=== PATIENT | female | born 1940 | race Caucasian/White ===

== ENCOUNTER → 2024-01-22 15:48 | Outpatient (REF) | payer MEDICARE, OTHER, SELFPAY | LOC: RCS 15:48 | PROVIDERS: ATTENDING PHYSICIAN Internal Medicine Cardiovascular Disease; FAMILY PHYSICIAN Family Medicine | DX: I48.91 Unspecified atrial fibrillation (principal) | CPT/HCPCS: 93306 ==

== ENCOUNTER 2024-04-29 22:05 | Observation (INO) | payer MEDICARE, OTHER, SELFPAY ==
[2024-04-29] VITALS (19 sets, daily range): BP systolic 97–232; BP diastolic 53–141; BMI 30.1
[2024-04-29 18:09] LABS: % Basophils 1.1 % (0-2); % Eosinophils 5.7 % (0-6); % Immature Granulocytes 0.2 % (0-0.5); % Lymphocytes 14.6 % (20.5-51.1); % Monocytes 10.4 % (1.7-9.3); Absolute Basophils 0.1 10^3/uL (0-0.2); Absolute Eosinophils 0.5 10^3/uL (0-0.7); Absolute Lymphocytes 1.2 10^3/uL (1.2-3.4); Absolute Monocytes 0.9 10^3/uL (0.1-0.6); Absolute Neutrophils 5.8 10^3/uL (1.4-6.5); Hematocrit 39.7 % (37.0-47.0); Mean Corp Hgb Conc. 35.3 g/dL (33.0-37.0); Mean Corpuscular Hgb 31.3 pg (27.0-31.0); Mean Corpuscular Volume 88.8 fL (81.0-99.0); Mean Platelet Volume 10.4 fL (7.4-10.4); Nucleated Red Blood Cells % 0 %; Platelet Count 219 10^3/uL (130-400); Red Blood Cell Count 4.47 10^6/uL (4.20-5.40); Red Cell Dist. Width 13.2 % (11.5-14.5); White Blood Cell Count 8.5 10^3/uL (4.8-10.8)
[2024-04-29] MEDS: APRESOLINE 10 MG IV (18:15)
[2024-04-29 18:31] LABS: ALT (SGPT) 32 U/L (0-35); AST (SGOT) 33 U/L (14-36); Albumin 4.6 g/dl (3.5-5.0); Alkaline Phosphatase 78 U/L (38-126); Blood Urea Nitrogen 16 mg/dl (7-17); Calcium 10.7 mg/dl (8.4-10.2); Carbon Dioxide 27 mmol/L (22-30); Chloride 99 mmol/L (98-107); Estimated Creatinine Clearance 71 ml/min; Glucose 113 mg/dl (70-99); Potassium 3.8 mmol/L (3.5-5.1); Sodium 140 mmol/L (135-145); Total Bilirubin 0.7 mg/dl (0.2-1.3); Total Protein 7.8 g/dl (6.3-8.2); eGFR > 60.00
[2024-04-29 18:42] LABS: NT-proBNP 2600 pg/ml; Troponin I < 0.012 ng/ml
[2024-04-29] MEDS: APRESOLINE 20 MG IV (20:09)
--- NOTE | 2024-04-29 20:52 | HPS.HSE ---
Family Physician
-
Family Physician: Josefina Harris
Chief Complaint
-
Blood pressure
History of Present Illness
Patient is a 84-year-old female with past medical history significant for atrial fibrillation who presented to [facility] when she realized her blood pressure was elevated. Patient states she monitors her blood pressure at home regularly and she
checked it today because she was feeling shaky that she states felt like a panic attack. Denies diagnosis of anxiety but states has had small panic attacks in the past, does not know what triggered todays symptoms. She states she has had cold like
symptoms with a cough for approximately 2 weeks. Denies any fever, chills, shortness of breath, chest pain, palpitations, nausea, vomiting, constipation, diarrhea or urinary symptoms.
Medical History
Past Medical History
Past Medical History: Reports Other
Additional Past Medical History:
Atrial fibrillation
Past Surgical History: Reports Other
Additional Past Surgical History:
cardiac ablation 2019
tubal ligation
Social History
Tobacco: Non-smoker
Alcohol: Occasional
Employment: Employed
Family History
Family History: Not pertinent
Allergies / Home Medications
Allergies reflects when Allergies were last updated in [facility].
Home Medications with original date entered in [facility]
Allergy/Medication List:
Allergies
Allergy/AdvReac Type Severity Reaction Status Date / Time
Penicillins Allergy Rash Verified 04/29/24 17:23
Home Medications
ascorbic acid (vitamin C) 1,000 mg tablet (Vitamin C) 1,000 mg PO DAILY 12/17/17
furosemide 20 mg tablet 20 mg PO DAILYPRN PRN Edema 12/17/17
methimazole 5 mg tablet 2.5 mg PO Q48H 12/17/17
apixaban 5 mg tablet (Eliquis) 5 mg PO BID 04/29/24
calcium carbonate 500 mg PO DAILY 04/29/24
furosemide 20 mg tablet (Lasix) 20 mg PO PRN PRN swelling 04/29/24
ibuprofen 200 mg tablet (Advil) 400 mg PO Q8HPRN PRN cold symptoms 04/29/24
sodium chloride 0.65 % nasal spray aerosol (Saline Nasal) 2 spray intranasal Q4HPRN PRN congestion 04/29/24
sotalol 80 mg tablet 80 mg PO BID 04/29/24
sumatriptan succinate 25 mg tablet 25 mg PO Q2HPRN PRN migraine 04/29/24
therapeutic multivitamin 1 tab PO DAILY 04/29/24
Review of Systems
-
Constitutional: Reports No Symptoms
EENT: Reports No Symptoms
Respiratory: Reports Cough
Cardiac: Reports No Symptoms
Abdomen/GI: Reports No Symptoms
: Reports No Symptoms
Musculoskeletal: Reports No Symptoms
Skin: Reports No Symptoms
Neurological: Reports No Symptoms
Endocrine: Reports No Symptoms
Hematologic/Lymphatic: Reports No Symptoms
Psych: Reports No Symptoms
Physical Exam
Vital Signs
Vital Signs
Temp Pulse Resp BP Pulse Ox
98.2 F 81 26 165/78 97
04/29/24 17:23 04/29/24 20:26 04/29/24 20:26 04/29/24 20:26 04/29/24 20:26
Physical Exam
General: Well Developed, Well Nourished, No Apparent Distress, Comfortable and Conversant
HEENT: NormoCephalic, Moist mucous membranes, Atraumatic, [place] Conjunctivae, Nose Appears Normal and Ears Appear Normal
Respiratory: Clear and Non Labored Respirations; No Wheezes, Rales, Rhonchi or Crackles
Cardiac: S1/S2 and Regular Rhythm; No Murmur, Rub, Gallop or Peripheral Edema
Breast: Deferred by me
GI: Soft, Non Tender, Non Distended and Normal Bowel Sounds; No Organomegaly
Rectal: Deferred by Provider
Genito-urinary: Deferred by me
Musculoskeletal: No Clubbing, No Cyanosis and No Edema
Skin: Warm, Dry and IV/Catheter Site; No Rash
Neuro: Awake, Alert, AO x 3 and Nonfocal/grossly intact
Hematologic/Lymphatic: No Lymphadenopathy
Psych: Calm and Intact Judgment/Insight
Laboratory Results
-
04/29/24 17:56
04/29/24 17:56
Laboratory Results
Total Bilirubin 0.7 mg/dl (0.2-1.3) 04/29/24 17:56
AST 33 U/L (14-36) 04/29/24 17:56
ALT 32 U/L (0-35) 04/29/24 17:56
Alkaline Phosphatase 78 U/L (38-126) 04/29/24 17:56
Troponin I < 0.012 ng/ml 04/29/24 17:56
Data Reviewed
-
Diagnostic Radiology: Report Reviewed by me (CXR: Patchy airspace opacities projecting over the mid and lower right lung suspicious for pneumonia. Recommend follow-up radiograph to ensure resolution.)
Lab Data: Labs Reviewed by me
Impression/Plan
-
IMPRESSION/PLAN:
#Pneumonia
- CXR: Patchy airspace opacities projecting over the mid and lower right lung suspicious for pneumonia. Recommend follow-up radiograph to ensure resolution.
- Cough present for approximately 2 weeks
- Admit for observation - telemetry
- Continue Ceftriaxone and Doxycycline
#Hypertension Urgency
- hypertensive on admission
- responded well to PRN Hydralazine
- Monitor blood pressure
- continue PRN Hydralazine
#Atrial Fibrillation
- ablation [place] [address] Ortega
- Continue Eliquis, Sotalol
DNR
DVT Prophylaxis: SCDs
--- NOTE | 2024-04-29 20:52 | W.PN.UPDATE ---
Update Note
Progress Note Update
This is an addendum to H&) written by PHOTOGRAPHIC EDITOR Deirdre Chao
I saw and examined the patient.
The PHOTOGRAPHIC EDITOR's note was reviewed and I agree with the note.
Comment:
Ms. Elda Shelton is a 84 yo woman with hx atrial fibrillation s/p ablation, HTN, hypothyroidism, presents to the ER with 2 weeks of cough and elevated BP today.
Triage VS: T 98.2, BP 232/141
Labs: WBC 8.5, Hg 14, PLT 219, Na 140, K+ 3.8, BUN 16, Cr 0.5, Ca 10.7, T. Bili 0.7, AST 33, ALT 32, Alk Phos 78, Trop < 0.012,. BNP 2600
EKG: NSR @ 81, PAC, LVH
CXR
IMPRESSION:
Patchy airspace opacities projecting over the mid and lower right lung suspicious for pneumonia. Recommend follow-up radiograph to ensure resolution.
MAR: IV hydralazine 10mg x 1 followed by 20mg IV x 1, IV Cef/Doxy
Community Acquire Pneumonia
-patient not septic or hypoxic
-continue IV Ceftriaxone/PO Doxycycline
Hypertensive Urgency
-s/p Hydralazine given in the ER with good response
-patient states she checks her BP at home and it is usually in the 130's-140's; she reports having white coat syndrome. denies taking cold medications or decongestants. Admits to being anxious today
-given SBP usually acceptable range at home - will not start new medication now but monitor patient on her [employer] Sotalol with PRN Hydralazine. AM hospitalist to evaluate BP trend and see if need for new medication
Atrial Fibrillation
-[employer] eliquis, Sotalol
[2024-04-29] MEDS: ROCEPHIN 1000 MG IV (20:56)
[2024-04-29] MEDS: VIBRAMYCIN 100 MG PO (20:56)
[2024-04-29] MEDS: FLUSH (NSS) 1 FLUSH IV (21:05)
[2024-04-29] MEDS: ELIQUIS 5 MG PO (21:23)
[2024-04-29] MEDS: BETAPACE 80 MG PO (21:23)
[2024-04-29 21:50] LABS: COVID-19 Antigen Negative (Negative)
[2024-04-29] MEDS: ZOFRAN 4 MG IV (21:59)
[2024-04-29] MEDS: NSS 500 IV (23:12)
[2024-04-30] VITALS (7 sets, daily range): BP systolic 97–183; BP diastolic 60–105
[2024-04-30] MEDS: COMPAZINE 5 MG IV (05:16)
[2024-04-30 07:32] LABS: Hematocrit 37.3 % (37.0-47.0); Hemoglobin 12.9 g/dL (12.0-16.0); Mean Corp Hgb Conc. 34.6 g/dL (33.0-37.0); Mean Corpuscular Hgb 32.1 pg (27.0-31.0); Mean Corpuscular Volume 92.8 fL (81.0-99.0); Mean Platelet Volume 10.7 fL (7.4-10.4); Platelet Count 181 10^3/uL (130-400); Red Blood Cell Count 4.02 10^6/uL (4.20-5.40); Red Cell Dist. Width 13.4 % (11.5-14.5); White Blood Cell Count 8.2 10^3/uL (4.8-10.8)
[2024-04-30 07:55] LABS: Blood Urea Nitrogen 23 mg/dl (7-17); Calcium 9.6 mg/dl (8.4-10.2); Carbon Dioxide 28 mmol/L (22-30); Chloride 98 mmol/L (98-107); Estimated Creatinine Clearance 59 ml/min; Glucose 144 mg/dl (70-99); Potassium 3.5 mmol/L (3.5-5.1); Sodium 137 mmol/L (135-145); eGFR > 60.00
[2024-04-30] MEDS: BETAPACE 80 MG PO ×2 (08:15→20:09)
[2024-04-30] MEDS: ELIQUIS 5 MG PO ×2 (08:15→20:08)
[2024-04-30] MEDS: VIBRAMYCIN PO (08:18)
--- NOTE | 2024-04-30 09:42 | W.PN.HOSP.TC ---
Addendum entered and electronically signed by Zoran Claire MD 05/02/24 16:50:
Correction, patient has hyperthyroidism
Original Note:
Today's Communication/Plan
-
see bold
Assessment / Plan
Assessment / Plan
#Community-acquired pneumonia
COVID/flu negative
Continue Rocephin/Doxy day 2
Check urine Legionella/strep antigen
Add Mucinex
#Intractable migraine headache
Give Imitrex 6 mg subcu x 1, Reglan 10 mg IV x 1, Toradol 15 mg IV x 1, Benadryl 12.5 mg IV x 1
Consider neurology consult
#Hypertensive urgency
Suspect secondary to when she has her migraine headache
Continue hydralazine 10 mg IV as needed
Treat migraine headache
#Paroxysmal atrial fibrillation on Eliquis
Continue Eliquis, sotalol
#Hypothyroidism
Continue methimazole
DVT prophylaxis�Eliquis
DNR
Total time spent to see the patient on the floor, examine the patient, review data and lab results, discuss treatment plan with patient, nursing staff around 50 minutes.
Physical Exam
General: No acute distress
HEENT: Normocephalic, Atraumatic, EOMI, MMM
Respiratory: Clear to Auscultation bilaterally
Cardiac: Normal S1/S2, Regular Rate and Rhythm
GI: Soft, Nontender, Nondistended, Normal Bowel Sounds
Extremities: No Clubbing, Cyanosis, or Edema
Neuro: Nonfocal/Grossly Intact
Psych: Calm, Cooperative
Derm: No Visible lesions
Anticipated Discharge: 24 - 48 hours
Subjective/Interval History
-
Date of Service: April 30, 2024
Patient complains of a migraine headache and nausea. No fever. No shortness of breath. She has an occasional cough.
Objective Data
-
Labs:
Laboratory Results
04/30/24
06:36
WBC 8.2
Hgb 12.9
Hct 37.3
Plt Count 181
Sodium 137
Potassium 3.5
Chloride 98
Carbon Dioxide 28
BUN 23 H
Creatinine 0.7
Glucose 144 H
Calcium 9.6
Vital Signs:
Vital Signs
Temp Pulse Resp BP Pulse Ox
98.1 F 74 18 169/105 94
04/30/24 07:00 04/30/24 07:00 04/30/24 07:00 04/30/24 07:00 04/30/24 07:00
I&O
04/29/24 04/30/24 05/01/24
06:59 06:59 06:59
Intake Total 240 / 240
Balance 240 / 240
[2024-04-30] MEDS: REGLAN 10 MG IV (09:59)
[2024-04-30] MEDS: FLUSH (NSS) 1 FLUSH IV (10:01)
[2024-04-30] MEDS: IMITREX 6 MG SC (10:47)
[2024-04-30] MEDS: BENADRYL 12.5 MG IV ×2 (10:48→17:14)
[2024-04-30] MEDS: TORADOL 15 MG IV (10:48)
[2024-04-30] MEDS: IMITREX 25 MG PO (17:12)
[2024-04-30] MEDS: DEPACON 60 MG IV (17:12)
[2024-04-30] MEDS: STERILE WATER FOR INJECTION 10 ML IV (17:14)
[2024-04-30] MEDS: ROCEPHIN 1000 MG IV (17:16)
[2024-04-30] MEDS: MAXALT MLT (ORALLY DISINTEGRATING) 10 MG PO (17:21)
[2024-04-30] MEDS: MUCINEX 600 MG PO (20:08)
[2024-04-30] MEDS: VIBRAMYCIN 100 MG PO (20:08)
[2024-04-30] MEDS: OCEAN, SALINE MIST 1 SPRAYS NASAL (20:17)
[2024-04-30] MEDS: TAPAZOLE 2.5 MG PO (23:05)
[2024-05-01] VITALS (7 sets, daily range): BP systolic 127–196; BP diastolic 68–100
[2024-05-01] MEDS: IMITREX 25 MG PO (02:28)
[2024-05-01 07:33] LABS: Hematocrit 38.6 % (37.0-47.0); Hemoglobin 13.2 g/dL (12.0-16.0); Mean Corp Hgb Conc. 34.2 g/dL (33.0-37.0); Mean Corpuscular Hgb 30.6 pg (27.0-31.0); Mean Corpuscular Volume 89.6 fL (81.0-99.0); Mean Platelet Volume 10.5 fL (7.4-10.4); Platelet Count 207 10^3/uL (130-400); Red Blood Cell Count 4.31 10^6/uL (4.20-5.40); Red Cell Dist. Width 13.6 % (11.5-14.5); White Blood Cell Count 7.9 10^3/uL (4.8-10.8)
[2024-05-01] MEDS: THERAGRAN 1 TABLET PO (08:33)
[2024-05-01] MEDS: OSCAL CAL 500 500 MG PO (08:33)
[2024-05-01] MEDS: ELIQUIS 5 MG PO ×2 (08:33→19:59)
[2024-05-01] MEDS: MUCINEX 600 MG PO ×2 (08:34→19:59)
[2024-05-01] MEDS: BETAPACE 80 MG PO ×2 (08:34→19:59)
[2024-05-01] MEDS: VITAMIN C 1000 MG PO (08:34)
[2024-05-01] MEDS: VIBRAMYCIN 100 MG PO ×2 (08:34→19:58)
--- NOTE | 2024-05-01 08:44 | CON.NEURO ---
Neuro Assessment/Plan
Assessment
New daily persistent headache with prior history of migraine headache without aura
Plan
Would work toward normotension which may by itself significantly reduce severity of headache
Provide triptan, provide diphenhydramine, provide valproic acid, consider use of high-dose steroid
Check CT of head as the patient is on anticoagulant
Check blood work including ESR
Continue current anticoagulant medication
Will follow
Consultation
Order
Date of Consultation: 05/01/24
Requesting Provider: Hospitalist
Reason for Consult: Migraine
Subjective/Objective
Subjective Data
Date of Service: May 01, 2024
Right-Handed
Patient presented to this hospital's emergency department 2 days ago with a sense of shakiness [place] to a panic attack. Upon checking her blood pressure found that it was elevated. She was subsequently hospitalized with discovery of a
community-acquired pneumonia.
Lifelong headaches, this headache is similar to prior severe headaches. Improved headaches in the past year (2022), frequency every other week. Usually Sumatriptan is assistive.
Band-like discomfort, explosive in quality, with burning in sinuses. This headache began after hospitalization.
Improved with prior medications given during hospitalization then worsened again this AM.
Current intensity out 10 of 10. Neck pain present.
Objective Data
Vital Signs
Temp Pulse Resp BP Pulse Ox
36.6 C 76 16 196/100 94
05/01/24 07:00 05/01/24 08:34 05/01/24 07:00 05/01/24 08:34 05/01/24 07:00
Lab Results
05/01/24 06:38
04/30/24 06:36
Sodium 137 mmol/L (135-145) 04/30/24 06:36
Potassium 3.5 mmol/L (3.5-5.1) 04/30/24 06:36
BUN 23 mg/dl (7-17) H 04/30/24 06:36
Glucose 144 mg/dl (70-99) H 04/30/24 06:36
Calcium 9.6 mg/dl (8.4-10.2) 04/30/24 06:36
[id number]-[id number]-Smocdomnxfx Pept 2600 pg/ml 04/29/24 17:56
Patient Allergies
Penicillins Allergy (Verified 04/29/24 17:23)
Rash
Review of Systems
-
History Source: Patient
All other systems: Reviewed and negative
EENT: Other (Photophobic, phonophobic); Negative Swallowing Difficulty
Abdomen/GI: Nausea; Negative Incontinence of Stool
Genitourinary: Negative Incontinence
Musculoskeletal: Neck Pain; Negative Back Pain
Neuro: Headache; Negative Dizzy or Speech Problem
Physical Exam
-
General: No Apparent Distress and Appears Stated Age
Eyes: OU Absent Papilledema, Round OU, [place] Conjunctivae and No Ptosis
HEENT: Anicteric and Moist Mucous Membranes
Neck: Full Range of Motion
Respiratory: No Dyspnea
Cardiac: No JVD
GI: Non-distended
Skin: Unremarkable
Extremities: No Clubbing, No Cyanosis and No Edema
Psych: Intact Judgement/Insight
Extended Neurological Exam
Mood & Affect: Mood Unremarkable and Affect Unremarkable
Attention Span & Concentration: Awake, Alert, Interactive and Mild Difficulty with 2 Step Request
Memory: Unremarkable
Tremor: Hand Tremor Absent and Head Tremor Absent
Involuntary Movement: None
Speech: Quality Unremarkable and Quantity Unremarkable
Cranial Nerve II: Left Eye: Pupillary Reactivity Unremarkable, Pupillary Size Unremarkable and Visual Wise Intact
Cranial Nerve II: Right Eye: Pupillary Reactivity Unremarkable, Pupillary Size Unremarkable and Visual Wise Intact
Cranial Nerves III, IV, : Extraocular Movement: Extraocular Movement Full in all Directions
Cranial Nerve VII: Facial Symmetry: Normal Facial Symmetry
Cranial Nerve VIII: Hearing: Unremarkable Hearing to Normal Conversational Volume
Cranial Nerves IX, X: Palate Movement: Palate Elevation Symmetric
Cranial Nerve XI: Shoulder Shrug: Unremarkable
Cranial Nerve XII: Tongue Protusion: Midline
Muscle Strength, Overall: Full Throughout
Muscle Bulk & Tone: Bulk Unremarkable and Tone Unremarkable
Pronator Drift: No Drift in Upper Extremities
Deep Tendon Reflexes: Unremarkable Throughout
Touch Sensation: Unremarkable
Coordination: [id number] Testing Unremarkable
Babinski Sign: Absent Bilaterally
Medications
-
Active Medications
Generic Name Dose Route Start Last Admin
Trade Name Freq PRN Reason Stop Dose Admin
Acetaminophen 650 mg 04/29/24 23:59
Acetaminophen 325 Mg Tablet PO 05/27/24 23:58
Q4HPRN PRN
mild pain/TORIBIO/temp> 100.4F
Apixaban 5 mg 04/30/24 08:00 05/01/24 08:33
Apixaban (Eliquis) 5 Mg Tablet PO 05/28/24 07:59 5 mg
BID MARY Administration
Ascorbic Acid 1,000 mg 05/01/24 08:00 05/01/24 08:34
Ascorbic Acid 500 Mg Tablet PO 05/29/24 07:59 1,000 mg
DAILY MARY Administration
Calcium Carbonate 500 mg 05/01/24 08:00 05/01/24 08:33
Calcium Carbonate 500 Mg Tablet PO 05/29/24 07:59 500 mg
DAILY MARY Administration
Ceftriaxone Sodium 1,000 mg 04/30/24 18:00 04/30/24 17:16
Ceftriaxone 1000 Mg / 10 Ml Vial IV 1,000 mg
Q24H MARY Administration
Doxycycline Hyclate 100 mg 04/30/24 08:00 05/01/24 08:34
Doxycycline 100 Mg Capsule PO 100 mg
Q12 MARY Administration
Guaifenesin 600 mg 04/30/24 20:00 05/01/24 08:34
Guaifenesin 600 Mg Extended Release Tablet PO 05/28/24 19:59 600 mg
Q12 MARY Administration
Hydralazine HCl 10 mg 04/29/24 23:59
Hydralazine 20 Mg/Ml Vial IV 05/27/24 23:58
Q4HPRN PRN
SBP >180
Ketorolac Tromethamine 15 mg 04/30/24 16:45
Ketorolac 15 Mg/Ml Injection IV 05/05/24 16:44
Q6HPRN PRN
headache, give w/ reglan/bendr
Methimazole 2.5 mg 04/30/24 22:00 04/30/24 23:05
Methimazole 5 Mg Tablet PO 05/28/24 21:59 2.5 mg
Q48H MARY Administration
Metoclopramide HCl 10 mg 04/30/24 09:24 04/30/24 09:59
Metoclopramide 10 Mg/2 Ml Vial IV 05/28/24 09:23 10 mg
Q6HPRN PRN Administration
nausea/vomiting
Multivitamins Therapeutic 1 tablet 05/01/24 08:00 05/01/24 08:33
Multivitamin Tablet PO 05/29/24 07:59 1 tablet
DAILY MARY Administration
Sodium Chloride 0 flush 04/29/24 22:00 04/30/24 10:01
Sodium Chloride 0.9% (Flush) Syringe IV 05/27/24 21:59 1 flush
PER PROTOCOL MARY Administration
Sodium Chloride 0 sprays 04/30/24 16:51 04/30/24 20:17
Sodium Chloride 0.65% Nasal [place] 45 Ml Bottle NASAL 05/28/24 16:50 1 sprays
Q4HPRN PRN Administration
congestion
Sotalol HCl 80 mg 04/30/24 08:00 05/01/24 08:34
Sotalol 80 Mg Tablet PO 05/28/24 07:59 80 mg
BID MARY Administration
Sterile Water 10 ml 04/30/24 18:00 04/30/24 17:14
Sterile Water For Injection 10 Ml Vial IV 05/28/24 17:59 10 ml
Q24H MARY Administration
Sumatriptan Succinate 25 mg 04/30/24 16:43 05/01/24 02:28
Sumatriptan (Imitrex) 25 Mg Tablet PO 05/28/24 16:42 25 mg
Q2HPRN PRN Administration
migraine
Home Medications
�Medication �Instructions �Recorded
ascorbic acid (vitamin C) 1,000 mg 1,000 mg PO DAILY Supplement 12/17/17
tablet (Vitamin C)
furosemide 20 mg tablet 20 mg PO DAILYPRN PRN Edema 12/17/17
methimazole 5 mg tablet 2.5 mg PO Q48H Thyroid 12/17/17
apixaban 5 mg tablet (Eliquis) 5 mg PO BID Blood Clot 04/29/24
Prevention/Tx
calcium carbonate 500 mg PO DAILY Supplement 04/29/24
furosemide 20 mg tablet (Lasix) 20 mg PO PRN PRN swelling 04/29/24
ibuprofen 200 mg tablet (Advil) 400 mg PO Q8HPRN PRN cold symptoms 04/29/24
sodium chloride 0.65 % nasal spray 2 spray intranasal Q4HPRN PRN 04/29/24
aerosol (Saline Nasal) congestion
sotalol 80 mg tablet 80 mg PO BID Arrhythmia 04/29/24
sumatriptan succinate 25 mg tablet 25 mg PO Q2HPRN PRN migraine 04/29/24
therapeutic multivitamin 1 tab PO DAILY Supplement 04/29/24
Past History
Past History
ED Past Medical History: Arrthythmia (AFib), HTN, Psychiatric (Generalized anxiety disorder) and Other (Community-acquired pneumonia)
ED Past Surgical History: Cardiac (Cardioversion) and Gynecological (Tubal ligation)
Social History
Tobacco: Non-smoker
Alcohol: Occasional
Family History
Family History: Other (Reviewed and noncontributory)
[2024-05-01] MEDS: APRESOLINE 10 MG IV (09:10)
--- NOTE | 2024-05-01 09:20 | W.PN.HOSP.TC ---
Addendum entered and electronically signed by Zoran Claire MD 05/02/24 16:49:
Correction, patient has hyperthyroidism
Original Note:
Today's Communication/Plan
-
see bold
Assessment / Plan
Assessment / Plan
#Community-acquired pneumonia
COVID/flu negative
Continue Rocephin/Doxy day 3
Check urine Legionella/strep antigen
Added Mucinex
#Intractable migraine headache
Appreciate neurology input, check head CT to rule out bleed
Continue migraine headache medications as per neurology
#Hypertensive urgency
Suspect secondary to when she has her migraine headache
Start lisinopril 10 mg p.o. daily
Continue hydralazine 10 mg IV as needed
Treat migraine headache
#Paroxysmal atrial fibrillation on Eliquis
Continue Eliquis, sotalol
#Hypothyroidism
Continue methimazole
DVT prophylaxis�Eliquis
DNR
Total time spent to see the patient on the floor, examine the patient, review data and lab results, discuss treatment plan with patient, nursing staff around 51 minutes.
Physical Exam
General: No acute distress
HEENT: Normocephalic, Atraumatic, EOMI, MMM
Respiratory: Clear to Auscultation bilaterally
Cardiac: Normal S1/S2, Regular Rate and Rhythm
GI: Soft, Nontender, Nondistended, Normal Bowel Sounds
Extremities: No Clubbing, Cyanosis, or Edema
Neuro: Nonfocal/Grossly Intact
Psych: Calm, Cooperative
Derm: No Visible lesions
Anticipated Discharge: 24 - 48 hours
Subjective/Interval History
-
Date of Service: May 01, 2024
Patient continues to complain of a severe migraine headache. No nausea, no vomiting. She does have photophobia from her migraine. She has a cough. No fever.
Objective Data
-
Labs:
Laboratory Results
05/01/24
06:38
WBC 7.9
Hgb 13.2
Hct 38.6
Plt Count 207
Vital Signs:
Vital Signs
Temp Pulse Resp BP Pulse Ox
97.8 F 76 16 196/100 94
05/01/24 07:00 05/01/24 09:10 05/01/24 07:00 05/01/24 09:10 05/01/24 07:00
I&O
04/30/24 05/01/24 05/02/24
06:59 06:59 06:59
Intake Total 240 / 240 480 / 480
Balance 240 / 240 480 / 480
[2024-05-01] MEDS: ZESTRIL 10 MG PO (10:01)
[2024-05-01] MEDS: COMPAZINE 10 MG IV (10:02)
[2024-05-01] MEDS: DEPACON 60 MG IV (10:28)
[2024-05-01] MEDS: INDERAL 10 MG PO ×2 (11:27→20:00)
--- NOTE | 2024-05-01 11:32 | CM ---
Patient seen bedside, initial assessment completed. Patient lives independently in a single story home, a few steps to enter. Patient denies use of DME, VN, or SNF history. Patient confirms PCP Josefina Harris, pharmacy [facility], confirms
prescription coverage. Patient denies insecurities at home. PATEL reviewed, refused to sign, placed in chart, patient provided with copy. CM will continue to follow for all discharge planning needs.
Plan; home no needs likely.
--- NOTE | 2024-05-01 11:48 | PTCARENOTE ---
Assumed care of pt from previous nurse. Pt with a migraine and elevated bp, Dr. Claire and made aware, new orders placed, hydralazine given,bp improved, headache not, Dr. Claire and Dr. Carty made aware, orders to be placed and this rn to follow
up. will cont to monitor. Call duggan within reach, pt rings ronny.
[2024-05-01] MEDS: PEPCID 20 MG PO (12:18)
[2024-05-01] MEDS: SOLU-MEDROL 258 MG IV (12:43)
[2024-05-01] MEDS: MAXALT MLT (ORALLY DISINTEGRATING) 10 MG PO (14:21)
[2024-05-01] MEDS: ROCEPHIN 1000 MG IV (17:53)
[2024-05-01] MEDS: STERILE WATER FOR INJECTION 10 ML IV (17:53)
[2024-05-01 20:35] LABS: Erythrocyte Sed Rate 19 mm/hour (0-20)
[2024-05-01 20:55] LABS: Ferritin 46.9 ng/ml (11.1-264.0)
[2024-05-01 21:27] LABS: Folate > 20.0 ng/ml (2.76-20); Vitamin B12 954 pg/ml (239-931)
[2024-05-02 03:26] VITALS: BP 130/78
[2024-05-02] MEDS: IMITREX 25 MG PO (06:05)
[2024-05-02 07:25] LABS: Hematocrit 40.8 % (37.0-47.0); Hemoglobin 14.3 g/dL (12.0-16.0); Mean Corpuscular Hgb 31.4 pg (27.0-31.0); Mean Corpuscular Volume 89.5 fL (81.0-99.0); Mean Platelet Volume 11.1 fL (7.4-10.4); Platelet Count 248 10^3/uL (130-400); Red Blood Cell Count 4.56 10^6/uL (4.20-5.40); Red Cell Dist. Width 13.6 % (11.5-14.5); White Blood Cell Count 11.6 10^3/uL (4.8-10.8)
[2024-05-02 07:30] VITALS: BP 161/87
[2024-05-02] MEDS: OSCAL CAL 500 500 MG PO (07:58)
[2024-05-02] MEDS: VIBRAMYCIN 100 MG PO (07:58)
[2024-05-02] MEDS: VITAMIN C 1000 MG PO (07:58)
[2024-05-02] MEDS: ELIQUIS 5 MG PO (07:59)
[2024-05-02] MEDS: INDERAL 10 MG PO (07:59)
[2024-05-02] MEDS: PEPCID 20 MG PO (07:59)
[2024-05-02] MEDS: MUCINEX 600 MG PO (07:59)
[2024-05-02] MEDS: BETAPACE 80 MG PO (08:02)
[2024-05-02] MEDS: ZESTRIL 10 MG PO ×2 (08:02→14:15)
--- NOTE | 2024-05-02 08:12 | W.PN.HOSP.TC ---
Addendum entered and electronically signed by Zoran Claire MD 05/02/24 16:49:
Correction, patient has hyperthyroidism
Original Note:
Today's Communication/Plan
-
Discharge today
Assessment / Plan
Assessment / Plan
#Community-acquired pneumonia
COVID/flu negative
Currently on Rocephin/Doxy day 4
Urine Legionella/strep antigen neg
Added Mucinex
Medically stable for discharge on cefdinir to complete a 7-day course
#Intractable migraine headache
Appreciate neurology input, head CT neg for bleed
Continue migraine headache medications as per neurology
Migraine resolved, will discharge on sumatriptan 100 mg p.o. as needed
#Hypertensive urgency
#Labile hypertension
Started lisinopril 10 mg p.o. daily, will increase to 20 mg daily today�new prescription sent to pharmacy
Continue hydralazine 10 mg IV as needed
Treat migraine headache
#Paroxysmal atrial fibrillation on Eliquis
Continue Eliquis, sotalol
#Hypothyroidism
Continue methimazole
DVT prophylaxis�Eliquis
DNR
Physical Exam
General: No acute distress
HEENT: Normocephalic, Atraumatic, EOMI, MMM
Respiratory: Clear to Auscultation bilaterally
Cardiac: Normal S1/S2, Regular Rate and Rhythm
GI: Soft, Nontender, Nondistended, Normal Bowel Sounds
Extremities: No Clubbing, Cyanosis, or Edema
Neuro: Nonfocal/Grossly Intact
Psych: Calm, Cooperative
Derm: No Visible lesions
Anticipated Discharge: Today
Subjective/Interval History
-
Date of Service: May 02, 2024
Patient had a mild headache this morning 4 out of 10 in intensity. She was given Imitrex, it is currently resolved. Her cough is improved. Denies shortness of breath, denies dyspnea with activity. No fever, no vomiting.
Objective Data
-
Labs:
Laboratory Results
05/02/24
06:24
WBC 11.6 H
Hgb 14.3
Hct 40.8
Plt Count 248
Vital Signs:
Vital Signs
Temp Pulse Resp BP Pulse Ox
97.4 F 78 18 130/78 97
05/02/24 03:26 05/02/24 03:26 05/02/24 03:26 05/02/24 03:26 05/02/24 03:26
I&O
05/01/24 05/02/24 05/03/24
06:59 06:59 06:59
Intake Total 480 / 480 1320 / 1320
Balance 480 / 480 1320 / 1320
--- NOTE | 2024-05-02 09:21 | W.PN.NEURO.1 ---
Today's Communication / Plan
-
Repeat dosing of triptan as the patient has persistent headache today
Patient will require aggressive therapy to remediate hypertension which is at this time continuing to fuel headache
Neuro Assessment/Plan
Assessment
New daily persistent headache with prior history of migraine headache without aura
Patient was provided with triptan, diphenhydramine, valproic acid, and single dose of methylprednisolone.
CT head was unremarkable as was ESR
Plan
Repeat dosing of triptan as the patient has persistent headache today
Patient will require aggressive therapy to remediate hypertension which is at this time continuing to fuel headache
Continue current anticoagulant medication
Will follow as needed
Subjective/Objective
Subjective Data
Date of Service: May 02, 2024
Much improved, poor sleep due to external factors. 10/14 intensity.
Objective Data
Vital Signs
Temp Pulse Resp BP Pulse Ox
36.8 C 77 16 161/87 95
05/02/24 07:30 05/02/24 07:30 05/02/24 07:30 05/02/24 07:30 05/02/24 07:30
Lab Results
05/02/24 06:24
04/30/24 06:36
Sodium 137 mmol/L (135-145) 04/30/24 06:36
Potassium 3.5 mmol/L (3.5-5.1) 04/30/24 06:36
BUN 23 mg/dl (7-17) H 04/30/24 06:36
Glucose 144 mg/dl (70-99) H 04/30/24 06:36
Calcium 9.6 mg/dl (8.4-10.2) 04/30/24 06:36
Ujv-N-Nhzvpeyvulh Pept 2600 pg/ml 04/29/24 17:56
Vitamin B12 954 pg/ml (239-931) H 05/01/24 19:52
Patient Allergies
Penicillins Allergy (Verified 04/29/24 17:23)
Rash
Review of Systems
-
History Source: Patient
All other systems: Reviewed and negative
Musculoskeletal: Negative Back Pain or Neck Pain
Physical Exam
-
General: No Apparent Distress and Appears Stated Age
Eyes: Round OU, [place] Conjunctivae and No Ptosis
HEENT: Anicteric and Moist Mucous Membranes
Neck: Full Range of Motion
Respiratory: No Dyspnea
Cardiac: No JVD
GI: Non-distended
Skin: Unremarkable
Extremities: No Clubbing, No Cyanosis and No Edema
Psych: Intact Judgement/Insight
Extended Neurological Exam
Mood & Affect: Mood Unremarkable and Affect Unremarkable
Attention Span & Concentration: Awake, Alert and Interactive
Memory: Unremarkable
Tremor: Hand Tremor Absent and Head Tremor Absent
Speech: Quality Unremarkable and Quantity Unremarkable
Cranial Nerve II: Left Eye: Pupillary Size Unremarkable and Visual Wise Grossly Intact
Cranial Nerve II: Right Eye: Pupillary Size Unremarkable and Visual Wise Grossly Intact
Cranial Nerves III, IV, : Extraocular Movement: Grossly Intact
Cranial Nerve VII: Facial Symmetry: Normal Facial Symmetry
Cranial Nerve VIII: Hearing: Unremarkable Hearing to Normal Conversational Volume
Cranial Nerve XI: Shoulder Shrug: Unremarkable
Muscle Strength, Overall: Spontaneously Moves (All extremities)
Muscle Bulk & Tone: Bulk Unremarkable and Tone Unremarkable
Pronator Drift: No Drift in Upper Extremities
Touch Sensation: Unremarkable
Coordination: Dcauqf-rpib-nvyyiu Testing Unremarkable
Past History
Past History
ED Past Medical History: Arrthythmia (AFib), HTN, Psychiatric (Generalized anxiety disorder) and Other (Community-acquired pneumonia)
ED Past Surgical History: Cardiac (Cardioversion) and Gynecological (Tubal ligation)
Social History
Tobacco: Non-smoker
Alcohol: Occasional
Family History
Family History: Other (Reviewed and noncontributory)
Medications
-
Medications:
Generic Name Dose Route Start Last Admin
Trade Name Freq PRN Reason Stop Dose Admin
Acetaminophen 650 mg 04/29/24 23:59
Acetaminophen 325 Mg Tablet PO 05/27/24 23:58
Q4HPRN PRN
mild pain/TORIBIO/temp> 100.4F
Apixaban 5 mg 04/30/24 08:00 05/02/24 07:59
Apixaban (Eliquis) 5 Mg Tablet PO 05/28/24 07:59 5 mg
BID MARY Administration
Ascorbic Acid 1,000 mg 05/01/24 08:00 05/02/24 07:58
Ascorbic Acid 500 Mg Tablet PO 05/29/24 07:59 1,000 mg
DAILY MARY Administration
Calcium Carbonate 500 mg 05/01/24 08:00 05/02/24 07:58
Calcium Carbonate 500 Mg Tablet PO 05/29/24 07:59 500 mg
DAILY MARY Administration
Ceftriaxone Sodium 1,000 mg 04/30/24 18:00 05/01/24 17:53
Ceftriaxone 1000 Mg / 10 Ml Vial IV 1,000 mg
Q24H MARY Administration
Doxycycline Hyclate 100 mg 04/30/24 08:00 05/02/24 07:58
Doxycycline 100 Mg Capsule PO 100 mg
Q12 MARY Administration
Famotidine 20 mg 05/01/24 12:00 05/02/24 07:59
Famotidine 20 Mg Tablet PO 05/29/24 11:59 20 mg
DAILY MARY Administration
Guaifenesin 600 mg 04/30/24 20:00 05/02/24 07:59
Guaifenesin 600 Mg Extended Release Tablet PO 05/28/24 19:59 600 mg
Q12 MARY Administration
Hydralazine HCl 10 mg 04/29/24 23:59 05/01/24 09:10
Hydralazine 20 Mg/Ml Vial IV 05/27/24 23:58 10 mg
Q4HPRN PRN Administration
SBP >180
Ketorolac Tromethamine 15 mg 04/30/24 16:45
Ketorolac 15 Mg/Ml Injection IV 05/05/24 16:44
Q6HPRN PRN
headache, give w/ reglan/bendr
Lisinopril 10 mg 05/01/24 10:00 05/02/24 08:02
Lisinopril 10 Mg Tablet PO 05/29/24 09:59 10 mg
DAILY MARY Administration
Methimazole 2.5 mg 04/30/24 22:00 04/30/24 23:05
Methimazole 5 Mg Tablet PO 05/28/24 21:59 2.5 mg
Q48H MARY Administration
Propranolol HCl 10 mg 05/01/24 11:00 05/02/24 07:59
Propranolol 10 Mg Regular Release Tablet PO 05/29/24 10:59 10 mg
BID MARY Administration
Sodium Chloride 0 flush 04/29/24 22:00 04/30/24 10:01
Sodium Chloride 0.9% (Flush) Syringe IV 05/27/24 21:59 1 flush
PER PROTOCOL MARY Administration
Sodium Chloride 0 sprays 04/30/24 16:51 04/30/24 20:17
Sodium Chloride 0.65% Nasal [place] 45 Ml Bottle NASAL 05/28/24 16:50 1 sprays
Q4HPRN PRN Administration
congestion
Sotalol HCl 80 mg 04/30/24 08:00 05/02/24 08:02
Sotalol 80 Mg Tablet PO 05/28/24 07:59 80 mg
BID MARY Administration
Sterile Water 10 ml 04/30/24 18:00 05/01/24 17:53
Sterile Water For Injection 10 Ml Vial IV 05/28/24 17:59 10 ml
Q24H MARY Administration
Sumatriptan Succinate 25 mg 04/30/24 16:43 05/02/24 06:05
Sumatriptan (Imitrex) 25 Mg Tablet PO 05/28/24 16:42 25 mg
Q2HPRN PRN Administration
migraine
[2024-05-02] MEDS: IMITREX 100 MG PO (10:56)
[2024-05-02 11:30] VITALS: BP 175/88
--- NOTE | 2024-05-02 14:12 | W.DCSUMMARY ---
Discharge Summary
Discharge Data
Date of Admission: 04/29/24
Date of Discharge: 05/02/24
-
Pending Results: No
Hospital Course
Discharge diagnosis:
Community-acquired pneumonia
Intractable migraine headache
Hypertensive urgency
Paroxysmal atrial fibrillation on Eliquis
Hyperthyroidism
Consults: Neurology
CXR:
Patchy airspace opacities projecting over the mid and lower right lung suspicious for pneumonia. Recommend follow-up radiograph to ensure resolution.
Head CT:
No acute intracranial abnormality noted.
Hospital course:
84-year-old female with a past medical history of atrial fibrillation on Eliquis, and hypothyroidism presented with cough. Patient was found to be in hypertensive urgency, as well as have community-acquired pneumonia. She received hydralazine 10
mg IV x 1 in the ER, and her blood pressure improved.
For patient's community-acquired pneumonia, she was influenza and COVID-negative. Urine Legionella and strep antigens were negative. She was treated with Rocephin and doxycycline.
Patient's hospital course was complicated by acute intractable migraine. She was seen in conjunction with neurology. Head CT was negative for acute intracranial abnormality. Patient received several doses of migraine cocktail, IV valproic acid,
and antiemetics. After several days, her headache resolved.
Her blood pressure was monitored, and did trend up. She was started on lisinopril 10 mg daily, and increased to 20 mg daily. Her blood pressure improved. She can continue lisinopril 20 mg daily upon discharge.
Patient is medically stable for discharge on cefdinir to complete a 7-day course. She needs to follow-up with her primary care doctor in 1 week.
Disposition: Home self-care
Discharge planning: Required 45 minutes
Discharge Plan
-
Patient Disposition: Home (Routine Discharge)
Discharge Diagnosis/Procedures: Pneumonia, migraine headache, hypertensive urgency
Condition: Good
Diet: Low Fat and Low Cholesterol
Activity: As tolerated
Driving Restrictions: As prior to admission
Activity Restrictions/Additional Instructions:
Please follow-up with your primary care doctor in 1 week.
Referrals:
Josefina Harris DO [Family Provider] - in one week
Prescriptions:
New
lisinopril 20 mg tablet
20 mg PO DAILY Qty: 30 0RF
sumatriptan succinate 100 mg tablet
100 mg PO ONCE PRN (Reason: migraine headache) Qty: 20 0RF
Rx Instructions:
May repeat dose x 1 after 2 hours. Do not exceed 200mg in 24 hours.
cefdinir 300 mg capsule
300 mg PO BID 3 Days Qty: 6 0RF
Continued
ascorbic acid (vitamin C) [Vitamin C] 1,000 MG tablet
1,000 mg PO DAILY
methimazole 5 MG tablet
2.5 mg PO Q48H
Patient Comments:
1/2 tab every other day
furosemide 20 MG tablet
20 mg PO DAILYPRN PRN (Reason: Edema)
sotalol 80 mg Tablet
80 mg PO BID
therapeutic multivitamin Tablet
1 tab PO DAILY
calcium carbonate 500 mg calcium (1,250 mg) Tablet
500 mg PO DAILY
Eliquis 5 mg Tablet
5 mg PO BID
Saline Nasal 0.65 % Aerosol,[place]
2 spray INTRANASAL Q4HPRN PRN (Reason: congestion)
furosemide [Lasix] 20 mg Tablet
20 mg PO PRN PRN (Reason: swelling )
Discontinued
sumatriptan succinate 25 mg Tablet
25 mg PO Q2HPRN MDD 100 mg PRN (Reason: migraine)
Rx Instructions:
migraine headache
ibuprofen [Advil] 200 mg Tablet
400 mg PO Q8HPRN PRN (Reason: cold symptoms)
Discharge Orders:
Discharge Patient (As Directed); Ordered 05/02/24
Ordered By: Zoran Claire
Discharge Date and Time
Discharge Date/Time: 05/02/24 16:43
Print Language: SERBIAN
[2024-05-02 16:00] VITALS: BP 158/88
== END 2024-05-02 16:43 | disposition home or self-care (01) ==
LOC: 4 WEST ACU 22:05
PROVIDERS: Nurse Practitioner Family; ADMITTING PHYSICIAN Student in an Organized Health Care Education/Training Program; ATTENDING PHYSICIAN Family Medicine; CONSULT PHYSICIAN Psychiatry & Neurology Neurology; EMERGENCY PHYSICIAN Emergency Medicine; FAMILY PHYSICIAN Family Medicine
DX: J18.9 Pneumonia, unspecified organism (principal); G43.919 Migraine, unspecified, intractable, without status migrainosus; I16.0 Hypertensive urgency; R05.9 Cough, unspecified; I48.0 Paroxysmal atrial fibrillation; I10 Essential (primary) hypertension; F41.0 Panic disorder [episodic paroxysmal anxiety]; M54.2 Cervicalgia; I49.1 Atrial premature depolarization; E05.90 Thyrotoxicosis, unspecified without thyrotoxic crisis or storm; R11.0 Nausea; Z79.01 Long term (current) use of anticoagulants; Z88.0 Allergy status to penicillin; Z66 Do not resuscitate; Z11.52 Encounter for screening for COVID-19; Z60.2 Problems related to living alone
CPT/HCPCS: 70450; 71046; 80048; 80053; 82607; 82728; 82746; 83880; 84439; 84443; 84484; 85025; 85027; 85652; 86140; 87040; 87449; 87502; 87811; 87899; 93005; G0378